=== PATIENT | female | born 1980 | race Caucasian/White ===

== ENCOUNTER 2019-03-07 06:25 | Day surgery (SDC) | payer OTHER ==
[~2019-03-07] VITALS: Ht 157.5 cm; Wt 83.9 kg
[~2019-03-07 06:25] MED LIST: MEGESTROL ACETA40 MG PO; SYNTHROID50 MCG PO; ZOCOR40 MG PO
[2019-03-08] MEDS ORDERED: SURFAK240 M1 PO (09:44)
[2019-03-08] MEDS ORDERED: PERCOCET 5-3251 EACH PO (09:44)
== END 2019-03-08 08:00 | disposition home or self-care (01) ==
LOC: CIR.AMB 06:25 → SURH 07:00 → EDSTATUS 08:15 → O/R 08:25 → SURH 08:25 → OB/GYN 08:25 → O/R 17:14 → OB/GYN 17:14 → CIR.AMB 03-08 08:00 → OB/GYN 03-08 10:55
DX: D25.1 Intramural leiomyoma of uterus (principal); N72 Inflammatory disease of cervix uteri; N83.8 Other noninflammatory disorders of ovary, fallopian tube and broad ligament; N93.8 Other specified abnormal uterine and vaginal bleeding; E03.8 Other specified hypothyroidism